=== PATIENT | female | born 1990 | race African-American/Black ===

== ENCOUNTER 2021-11-19 20:25 | Emergency (ER) | payer OTHER ==
[~2021-11-19] VITALS: Ht 172.7 cm; Wt 95.0 kg
[2021-11-19 20:39] VITALS: BP 156/83
[2021-11-19] MEDS: ONDANSETRON 4MG ODT PO ONE (22:45)
[2021-11-19] MEDS: ACETAMINOPHEN 325MG TABLET PO ONE (22:45)
[2021-11-19 23:07] LABS: BASOPHILS % 0.3 % (0.0-2.0); EOSINOPHILS % 1.5 % (0.0-5.0); HEMATOCRIT. 32.9 % (36.0-48.0); LYMPHOCYTES % 20.3 % (20.0-50.0); MEAN CORPUSCULAR HEMOGLOBIN 28.9 pg (28.0-32.0); MEAN CORPUSCULAR VOLUME 86.1 fL (81.0-99.0); MEAN PLATELET VOLUME 7.8 fl (7.4-10.4); MONOCYTES % 4.5 % (2.0-8.0); NEUTROPHILS % 73.4 % (40.0-76.0); PLATELET 295 x1000/uL (130-400); RED BLOOD CELL COUNT 3.83 mill/uL (4.2-5.4); RED CELL DISTRIBUTION WIDTH 13.6 % (11.6-14.6)
[2021-11-19 23:09] LABS: CHLORIDE 104 mEq/L (98-107)
[2021-11-19 23:33] LABS: B-HCG QUANTITATIVE 32446 mIU/mL (<3)
[2021-11-19 23:56] LABS: CLARITY URINE CLEAR (CLEAR); COLOR URINE YELLOW (YELLOW); KETONES URINE NEGATIVE (NEGATIVE); LEUKOCYTE ESTERASE URINE 1+ (NEGATIVE); NITRITE URINE NEGATIVE (NEGATIVE); OCCULT BLOOD URINE NEGATIVE (NEGATIVE); PROTEIN URINE NEGATIVE (NEGATIVE); SPECIFIC GRAVITY URINE 1.018 (1.005-1.030); UROBILINOGEN URINE 0.2 E.U./dL (0.2-1.0)
[2021-11-20] MEDS ORDERED: ACET-2708 MT ×3 (01:37→01:47)
[2021-11-20] MEDS ORDERED: CEPH250C2 MT ×3 (01:37→01:47)
== END 2021-11-20 02:14 | disposition home or self-care (01) ==
LOC: ER 20:25
DX: O26.892 Other specified pregnancy related conditions, second trimester (principal); R51.9 Headache, unspecified; O23.42 Unspecified infection of urinary tract in pregnancy, second trimester; N39.0 Urinary tract infection, site not specified; Z3A.16 16 weeks gestation of pregnancy; Z98.890 Other specified postprocedural states
CPT/HCPCS: 36415; 76805; 80053; 81003; 81025; 84702; 85025; 86850; 86900; 86901; 99284; Q0162